=== PATIENT | male | born 1985 ===

== ENCOUNTER 2018-04-30 07:59 | Emergency (ER) | payer BC, OTHER ==
[2018-04-30] MEDS ORDERED: Sodium Chloride 0.9% 1,000 ML IV STA (08:59)
[2018-04-30 09:22] LABS: VENOUS BLOOD GAS PCO2 50 mmHg (40-60); VENOUS BLOOD GAS PO2 35 mm/Hg (30-55); VENOUS BLOOD PH 7.33 (7.32-7.43)
[2018-04-30 09:22] LABS: BASO % 0.5 % (0.0-2.0); EOS # 0.2 K/uL (0.0-0.7); EOS % 2.4 % (0.0-4.0); HEMOGLOBIN 15.9 g/dL (12.0-18.0); LYMPH # 1.6 K/uL (1.0-4.3); LYMPH % 22.4 % (20.0-40.0); MEAN CORPUSCULAR HEMOGLOBIN 28.4 pg (27.0-31.0); MEAN CORPUSCULAR HGB CONC 33.8 g/dL (33.0-37.0); MEAN PLATELET VOLUME 9.7 fl (7.2-11.7); MONO # 1.1 K/uL (0.0-0.8); MONO % 14.6 % (0.0-10.0); NEUT # 4.4 K/uL (1.8-7.0); NEUT % 60.1 % (50.0-75.0); NRBC % 0.2 % (0.0-0.0); RBC 5.59 Mil/uL (4.40-5.90); RED CELL DISTRIBUTION WIDTH 14.5 % (11.5-14.5); WHITE BLOOD COUNT 7.2 K/uL (4.8-10.8)
--- NOTE | 2018-04-30 09:26 | ED PDOC ---
History of Present Illness History of Present Illness: 32 year old male with a history of diabetes presents to the ED with cough and congestion associated with loss of appetite for the last 3 days. Patient reports he was unable to breath at work, went to [facility] and was given Sudafed, Mucinex DM and Flonase. Since taking the medications, in addition to his regular Levemir and Novolog, he has a loss of appetite, lightheadedness and is unable to sleep. When he got up, he started coughing uncontrollably which lead to gagging and vomiting. He vomited phlegm at first, but with repeated wrenching the spit started to become tinged with blood. Last time he vomited was 1 hour prior to arrival. He reports having a sick contact in his girlfriend's niece a few days prior to onset. Denies abdominal pain and urinary symptoms. 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) HPI: Influenza Time Seen by Provider: 04/30/18 08:21 Chief Complaint: Cough, Cold, Congestion Chief Complaint (Provider): Cough, Cold, Congestion History Per: Patient Exam Limitations: no limitations Onset/Duration Of Symptoms: Days (x 3) Symptoms include: vomiting Past Medical History Reviewed: Historical Data, Nursing Documentation, Vital Signs Vital Signs: Last Vital Signs Temp 98.2 F 04/30/18 08:27 Pulse 81 04/30/18 08:27 Resp 19 04/30/18 08:27 BP 122/72 04/30/18 08:27 Pulse Ox 97 04/30/18 08:27 - Medical History PMH: Asthma (Bronchial asthma), Diabetes Denies: HIV, Chronic Kidney Disease - Surgical History Surgical History: No Surg Hx - Family History Family History: States: Diabetes (Uncle @ 34yo. Parents and siblings are not diabetic.) - Home Medications Home Medications: Ambulatory Orders Medication Instructions Recorded Insulin Detemir [Levemir] 40 units SC HS #1 vial 09/23/15 Insulin Lispro [Humalog] 12 units SQ ACB #1 vial 09/23/15 Insulin Lispro [Humalog] 14 units SQ ACL #1 vial 09/23/15 Insulin Lispro [Humalog] 16 units SQ DIN #1 vial 09/23/15 Amoxicillin/Clavulanate [Augmentin 1 tab PO BID #14 tab 05/08/16 875 MG-125 MG] Oseltamivir [Tamiflu] 75 mg PO BID #10 cap 05/08/16 Pseudoephedrine [Sudafed Tab] 30 mg PO Q6 PRN #30 tab 05/08/16 - Allergies Allergies/Adverse Reactions: Allergies Allergy/AdvReac Type Severity Reaction Status Date / Time No Known Allergies Allergy Verified 05/08/16 21:28 Review of Systems ROS Statement: Except As Marked, All Systems Reviewed And Found Negative ENT: Positive for: Nose Congestion Respiratory: Positive for: Cough Gastrointestinal: Negative for: Abdominal Pain Genitourinary Male: Negative for: Dysuria, Frequency, Incontinence Physical Exam - Reviewed Nursing Documentation Reviewed: Yes Vital Signs Reviewed: Yes - Physical Exam Appears: Positive for: Non-toxic, No Acute Distress Head Exam: Positive for: ATRAUMATIC, NORMAL INSPECTION, NORMOCEPHALIC Skin: Positive for: Normal Color, Warm, Dry Eye Exam: Positive for: EOMI, Normal appearance, PERRL Neck: Positive for: Normal, Painless ROM, Supple Cardiovascular/Chest: Positive for: Regular Rate, Rhythm. Negative for: Murmur Respiratory: Positive for: Normal Breath Sounds. Negative for: Respiratory Distress Gastrointestinal/Abdominal: Positive for: Normal Exam, Soft. Negative for: Tenderness Extremity: Positive for: Normal ROM. Negative for: Deformity Neurologic/Psych: Positive for: Alert, Oriented (x 3). Negative for: Motor/Sensory Deficits Medical Decision Making Medical Decision Makin:58 Impression: cough, congestion and loss of appetite Initial Plan: --CMP --CBC --Urine dip --VBG --NS IV --Glucose POC Scribe Attestation: Documented by Shannan Ochoa, acting as a scribe for Kenna Herrera MD Provider Scribe Attestation: All medical record entries made by the Scribe were at my direction and personally dictated by me. I have reviewed the chart and agree that the record accurately reflects my personal performance of the history, physical exam, medical decision making, and the department course for this patient. I have also personally directed, reviewed, and agree with the discharge instructions and disposition. - Laboratory Results Result Diagrams: 04/30/18 09:14 04/30/18 09:14 - ECG O2 Sat by Pulse Oximetry: 97 Disposition - Clinical Impression Clinical Impression: Viral syndrome - Patient ED Disposition Is Patient to be Admitted: No Doctor Will See Patient In The: Office Counseled Patient/Family Regarding: Diagnosis, Need For Followup - Disposition Referrals: Raven Calvert [Outside] Disposition: Routine/Home Disposition Time: 10:30 Condition: STABLE Instructions: Viral Syndrome (DC) Forms: Raven Jerez ([place]), [facility] ED School/Work Excuse - POA Present On Arrival: None
[2018-04-30 09:31] LABS: ALB/GLOB RATIO 1.3 (1.0-2.1); ALBUMIN 4.2 g/dL (3.5-5.0); ALT/SGPT 70 U/L (21-72); AST/SGOT 43 U/L (17-59); BLOOD UREA NITROGEN 13 mg/dl (9-20); CALCIUM 9.7 mg/dL (8.4-10.2); GFR NON-AFRICAN AMERICAN > 60
[2018-04-30 11:22] VITALS: BP 126/78; PULSE 88; RESP 16; TEMP 98.7; O2SAT 99
== END 2018-04-30 11:09 | disposition home or self-care (01) ==
LOC: H.ER 07:59
DX: B34.9 Viral infection, unspecified (principal); E11.9 Type 2 diabetes mellitus without complications; Z79.4 Long term (current) use of insulin
CPT/HCPCS: 80053; 82803; 82948; 85025; 96360; 99284; J7030